=== PATIENT | female | born 1990 | race African-American/Black ===

== ENCOUNTER 2016-04-15 02:58 | Emergency (ER) | payer BC, OTHER ==
[~2016-04-15] VITALS: Ht 167.6 cm; Wt 72.6 kg
[2016-04-15] MEDS ORDERED: FLEXERIL PO (04:37)
[2016-04-15] MEDS ORDERED: NORCO 5-325 TA1 EACH PO (04:37)
[2016-04-15 04:52] VITALS: BP 107/57
== END 2016-04-15 04:56 | disposition home or self-care (01) ==
LOC: ER 02:58
DX: S02.2XXA Fracture of nasal bones, initial encounter for closed fracture (principal); S09.90XA Unspecified injury of head, initial encounter; S00.531A Contusion of lip, initial encounter; S00.83XA Contusion of other part of head, initial encounter; Z88.2 Allergy status to sulfonamides; F10.99 Alcohol use, unspecified with unspecified alcohol-induced disorder; Y04.2XXA Assault by strike against or bumped into by another person, initial encounter

== ENCOUNTER 2016-11-05 19:13 | Emergency (ER) | payer OTHER ==
[~2016-11-05] VITALS: Ht 167.6 cm; Wt 82.6 kg
[~2016-11-05 19:13] MED LIST: FLEXERIL PO; NORCO 5-325 TA1 EACH PO
[2016-11-05] MEDS ORDERED: FLUOCINONI0.05 %/30 TOP (19:34)
[2016-11-05] MEDS ORDERED: NAPROSYN500 MG PO (20:32)
[2016-11-05] MEDS ORDERED: NORFLEX100 MG PO (20:32)
[2016-11-05 20:57] VITALS: BP 116/74
== END 2016-11-05 20:30 | disposition home or self-care (01) ==
LOC: ER 19:13
DX: S16.1XXA Strain of muscle, fascia and tendon at neck level, initial encounter (principal); Z88.2 Allergy status to sulfonamides; V89.2XXA Person injured in unspecified motor-vehicle accident, traffic, initial encounter; Y93.89 Activity, other specified; Y92.89 Other specified places as the place of occurrence of the external cause; Y99.8 Other external cause status

== ENCOUNTER 2016-11-13 17:41 | Emergency (ER) | payer OTHER | END 2016-11-13 20:55 | disposition home or self-care (01) | LOC: ER 17:41 | DX: S06.0X0A Concussion without loss of consciousness, initial encounter (principal); Z88.2 Allergy status to sulfonamides; V89.2XXA Person injured in unspecified motor-vehicle accident, traffic, initial encounter; Y93.I9 Activity, other involving external motion; Y92.89 Other specified places as the place of occurrence of the external cause; Y99.8 Other external cause status ==